=== PATIENT | female | born 1945 | race Caucasian/White ===

== ENCOUNTER → 2018-07-22 11:07 | Outpatient (CLI) | payer MEDICARE, OTHER, SELFPAY ==
[2018-07-22 12:21] LABS: Absolute Lymphocyte Count 1.15 X10^3/ul (0.83-4.51); Absolute Neutrophil Count 5.2 X10^3/uL (2.0-7.7); Basophil# 0.04 X10^3/uL; Basophil% 0.6 % (0-1); Eosinophil# 0.19 X10^3/uL; Eosinophils% 2.7 % (0-5); Hematocrit 43.7 % (37-47); Lymphocyte # 1.15 X10^3/ul (4.0); Lymphocyte % 16.4 % (19-41); Mean Corpuscular Hgb 29.5 pg (27.0-32.0); Mean Platelet Vol. 10.2 fl (6.2-12.0); Monocyte# 0.43 X10^3/uL; Monocyte% 6.1 % (0-10); Neutrophil # 5.18 X10^3/uL (2.7-7.7); Neutrophil % 73.9 % (47-70); Platelet Count 272 K/mm3 (150-450); RBC Distribution Width CV 14.1 % (11.6-14.6); RBC Distribution Width SD 46.5 fl (35.1-43.9); Red Blood Count 4.75 M/mm3 (4.2-5.4)
[2018-07-22 12:30] LABS: POSITIVE COUNT NO; POSITIVE DIFFERENTIAL NO; POSITIVE MORPHOLOGY NO
[2018-07-22 12:45] LABS: Anion Gap 8 (5-15); BUN 18 mg/dL (7-18); BUN/Creat Ratio 23.5 RATIO (10-20); Calcium,Total 8.8 mg/dL (8.5-10.1); Chloride 105 mmol/L (98-107); Cholesterol 192 mg/dL (200); Creatinine, Serum 0.77 mg/dL (0.55-1.02); EST Glomerular Filtration Rate 78 mL/min (>60); Est Glom Filt Rate - Afr Amer 95 mL/min (>60); Glucose 119 mg/dL (74-106); High Density Lipoprotein 62 mg/dL; Potassium 3.8 mmol/L (3.5-5.1); Sodium Level 140 mmol/L (136-145); Triglycerides 114 mg/dL; Very Low Density Lipoprotein 23 mg/dL (5-40)
[2018-07-22 12:57] LABS: Hemoglobin A1c 6.3 % (4.2-6.3)
== END ==
PROVIDERS: Family Provider Family Medicine; PCP Family Medicine; Referring Provider Family Medicine; Visit Provider Family Medicine
DX: L03.116 Cellulitis of left lower limb (principal); R73.02 Impaired glucose tolerance (oral); I10 Essential (primary) hypertension
CPT/HCPCS: 36415; 80048; 80061; 83036; 85025

== ENCOUNTER → 2020-02-09 14:22 | Outpatient (CLI) | payer MEDICARE, OTHER, SELFPAY ==
[2020-02-09 18:35] LABS: AST(SGOT) 17 U/L (15-37); Alanine Aminotransfer ALT/SGPT 32 U/L (13-56); Anion Gap 5 (5-15); BUN 15 mg/dL (7-18); BUN/Creat Ratio 15.5 RATIO (10-20); Calcium,Total 8.8 mg/dL (8.5-10.1); Chloride 105 mmol/L (98-107); Cholesterol 183 mg/dL (200); Creatinine, Serum 0.96 mg/dL (0.55-1.02); EST Glomerular Filtration Rate 60 mL/min (>60); Est Glom Filt Rate - Afr Amer 72 mL/min (>60); Glucose 118 mg/dL (74-106); High Density Lipoprotein 60 mg/dL; Potassium 3.8 mmol/L (3.5-5.1); Sodium Level 140 mmol/L (136-145); Triglycerides 167 mg/dL; Very Low Density Lipoprotein 33 mg/dL (5-40)
[2020-02-09 18:41] LABS: Hemoglobin A1c 6.4 % (3.8-5.6)
== END ==
PROVIDERS: PCP Family Medicine; Referring Provider Family Medicine; Visit Provider Family Medicine
DX: R73.02 Impaired glucose tolerance (oral) (principal); E78.5 Hyperlipidemia, unspecified; I10 Essential (primary) hypertension
CPT/HCPCS: 36415; 80048; 80061; 83036; 84450; 84460

== ENCOUNTER → 2020-08-29 15:25 | Outpatient (CLI) | payer MEDICARE, OTHER, SELFPAY ==
[2020-08-29 18:08] LABS: Anion Gap 6 (5-15); BUN 14 mg/dL (7-18); BUN/Creat Ratio 19.7 RATIO (10-20); Calcium,Total 9.1 mg/dL (8.5-10.1); Chloride 104 mmol/L (98-107); Cholesterol 211 mg/dL (200); Creatinine, Serum 0.71 mg/dL (0.55-1.02); EST Glomerular Filtration Rate 85 mL/min (>60); Est Glom Filt Rate - Afr Amer 103 mL/min (>60); Glucose 104 mg/dL (74-106); High Density Lipoprotein 71 mg/dL; Potassium 4.1 mmol/L (3.5-5.1); Sodium Level 140 mmol/L (136-145); Triglycerides 90 mg/dL; Very Low Density Lipoprotein 18 mg/dL (5-40)
== END ==
PROVIDERS: PCP Family Medicine; Referring Provider Family Medicine; Visit Provider Family Medicine
DX: I10 Essential (primary) hypertension (principal)
CPT/HCPCS: 36415; 80048; 80061

== ENCOUNTER 2021-05-28 10:12 | Outpatient (CLI) | payer MEDICARE, OTHER, SELFPAY ==
[2021-05-28 16:02] LABS: Microalbumin,Random Urine 5.4 mg/L (NO RANGE EST.)
[2021-05-28 16:09] LABS: Anion Gap 8 (5-15); BUN 20 mg/dL (7-18); BUN/Creat Ratio 27.7 RATIO (10-20); Calcium,Total 8.9 mg/dL (8.5-10.1); Chloride 104 mmol/L (98-107); Creatinine, Serum 0.72 mg/dL (0.55-1.02); EST Glomerular Filtration Rate 83 mL/min (>60); Est Glom Filt Rate - Afr Amer 101 mL/min (>60); Glucose 126 mg/dL (74-106); Sodium Level 141 mmol/L (136-145)
== END 2021-05-28 23:59 | disposition short-term general hospital (02) ==
LOC: MFPLAB 10:15
PROVIDERS: PCP Family Medicine; Visit Provider Family Medicine
DX: I10 Essential (primary) hypertension (principal)
CPT/HCPCS: 36415; 80048; 82043; 82570

== ENCOUNTER → 2022-02-18 | Outpatient (CLI) | payer MEDICARE, OTHER, SELFPAY ==
[2022-02-18 18:47] LABS: Anion Gap 7 (5-15); BUN 15 mg/dL (7-18); BUN/Creat Ratio 19.6 RATIO (10-20); Chloride 105 mmol/L (98-107); Cholesterol 180 mg/dL (200); Creatinine, Serum 0.77 mg/dL (0.55-1.02); EST Glomerular Filtration Rate 78 mL/min (>60); Est Glom Filt Rate - Afr Amer 94 mL/min (>60); Glucose 90 mg/dL (74-106); High Density Lipoprotein 63 mg/dL; Potassium 3.9 mmol/L (3.5-5.1); Sodium Level 142 mmol/L (136-145); Triglycerides 82 mg/dL; Very Low Density Lipoprotein 16 mg/dL (5-40)
== END | disposition home or self-care (01) ==
LOC: MFPLAB 14:16
PROVIDERS: PCP Family Medicine; Visit Provider Family Medicine
DX: I10 Essential (primary) hypertension (principal); E78.5 Hyperlipidemia, unspecified
CPT/HCPCS: 36415; 80048; 80061

== ENCOUNTER → 2023-06-13 | Outpatient (CLI) | payer MEDICARE, OTHER, SELFPAY ==
--- OUTSIDE RECORDS SUMMARY | 2023-06-13 12:11 | XMS RPT_ITS | CCD ---
Author Name Unknown Address [address] [place] [address] Organization [facility] Care Team Providers Care Chief Accountant Name Role Phone Aleisha Smiley Unavailable Claudia Tijerina Unavailable [place] Un[place] Carl Godinez Unavailable Pau Kelley Unavailable Unavailnancy bhatti Unavailable Unavailable Unavailable JIA EARL Unavailable Unavailab ALEISHA Zhou Unavailable Unavailable BERNABE TORRES Unavailable Unavailable ALEISHA SMILEY Unavailable Unavailable GONZALEZ DONNELLY Unavailable Unavailable ALEISHA SMILEY Unavailable Unavailable Aleisha Smiley Primary Care Provider [phone] Claudia Tijerina Unavailable Gonzalez Donnelly Unavailable Unavailable Carl Godinez Unavailable Pau Kelley Unavailable [phone] Aleisha Smiley MD Primary Care Provider Claudia Tijerina MD Unavailable [place] Gonzalez HEM[place]ILL Unavailable Carl Godinez MD Unavailable Pau Kelley MD Unavailable [phone] Allergies Allergy Classification Reported Allergen(s) Allergy Type Date of Onset Reaction(s) Facility (7 sources) caffeine; Translations: [CAFFEINE] Propensity to adverse reactions to drug 5 [facility] Work Phone: (7 sources) codeine; Translations: [CODEINE] Propensity to adverse reactions to drug -23-201 5 [facility] Work Phone: (7 sources) cow milk allergenic extract; Translations: [MILK] Propensity to adverse reactions to drug 08-16-201 6 GI Intolerance [facility] Work Phone: (7 sources) egg white (chicken) allergenic extract; Translations: [EGG WHITE] Propensity to adverse reactions to drug --201 5 [facility] Work Phone: (7 sources) lisinopril; Translations: [LISINOPRIL] Propensity to adverse reactions to drug --201 5 [facility] Work Phone: (7 sources) peanut allergenic extract; Translations: [PEANUT] Propensity to adverse reactions to drug 08--201 6 [facility] Work Phone: (6 sources) Penicillins; Translations: [PENICILLINS] Propensity to adverse reactions to drug -- 5 [facility] Work Phone: (7 sources) solifenacin; Translations: [SOLIFENACIN] Propensity to adverse reactions to drug --201 5 [facility] Work Phone: (7 sources) soybean preparation; Translations: [SOYBEAN] Propensity to adverse reactions to drug --201 5 [facility] Work Phone: (6 sources) Sulfonamides (Antibiotic); Translations: [SULFA (SULFONAMIDE ANTIBIOTICS)] Propensity to adverse reactions to drug -23-201 5 [facility] Work Phone: (6 sources) SHELLFISH CONTAINING PRODUCTS; Translations: [SHELLFISH CONTAINING PRODUCTS] Propensity to adverse reactions to drug -23-201 5 [facility] Work Phone: (1 source) Penicillins Propensity to adverse reactions to drug -23-201 5 [facility] (1 source) Shellfish Propensity to adverse reactions to drug -23-201 5 [facility] (1 source) Sulfonamides (Antibiotic) Propensity to adverse reactions to drug -23-201 5 [facility] Medications Current Medications Medication Drug Class(es) Dates Sig (Normalized) Sig (Original) aspirin 81 mg delayed release oral tablet (6 sources) Nonsteroidal Anti-inflammatory Drug take 1 tablet by mouth once daily aspirin 81 MG EC tablet Take 81 mg by mouth daily. 0 Active carvedilol 6.25 mg oral tablet (6 sources) alpha-Adrenergic Talon, beta-Adrenergic Talon Start: 06-13-2015 take 1 tablet by mouth twice daily carvedilol (COREG) 6.25 MG tablet Take 6.25 mg by mouth 2 (two) times a day. 3 06/13/2015 Active cholecalciferol 0.025 mg oral tablet (6 sources) Vitamin D take 1 tablet by mouth once daily cholecalciferol, vitamin D3, 1,000 unit tablet Take 1,000 Units by mouth daily. 0 Active 24 hr fesoterodine fumarate 4 mg extended release oral tablet (3 sources) Start: 07-24-2017 take 1 tablet by mouth once daily fesoterodine (TOVIAZ) 4 mg Tb24 Indications: Overactive bladder Take 1 (one) tablet (4 mg total) by mouth daily. 90 tablet 3 07/24/2017 Active hydroCHLOROthiazide 25 mg / triamterene 37.5 mg oral capsule (6 sources) Potassium-sparing Diuretic, Thiazide Diuretic Start: 10-05-2014 triamterene-hydroc hlorothiazide (DYAZIDE) 37.5-25 mg per capsule 37.5 capsules. 0 10/05/2014 Active lutein 20 mg oral capsule (6 sources) lutein 20 mg cap Take by mouth. 0 Active potassium chloride 10 meq extended release oral capsule (6 sources) Start: 10-05-2014 potassium chloride (MICRO-K) 10 MEQ CR capsule 10 mEq 3 (three) times a day. 0 10/05/2014 Active vitamin b12 0.5 mg oral tablet (6 sources) Vitamin B12 take 1 tablet by mouth once daily cyanocobalamin (vitamin B-12) 500 MCG tablet Take 500 mcg by mouth daily. 0 Active Completed/Discontinued Medications Medication Drug Class(es) Dates Sig (Normalized) Sig (Original) calcium carbonate 1250 mg / ergocalciferol 200 unt oral tablet (1 source) Provitamin D2 Compound End: 12-31-2016 take 1 tablet by mouth twice daily calcium carbonate-vitamin D2 500 mg(1,250mg) -200 unit tablet Take 1 tablet by mouth 2 (two) times a day. 12/31/2016 Discontinued fluconazole 100 mg oral tablet (4 sources) Azole Antifungal Start: 06-20-2015 End: 01-05-2018 fluconazole (DIFLUCAN) 100 MG tablet Indications: Candidal skin infection Take 2 tabs (200 mg) once. Then take 1 tab (100 mg) daily for 6 days.. 8 tablet 0 06/20/2015 01/05/2018 Discontinued Problems Active Problems Problem Classification Problem Date Documented Da te Episodic/Chronic Cancer of uterus (9 sources) Malignant neoplasm of corpus uteri, excluding isthmus; Translations: [Malignant neoplasm of corpus uteri, unspecified] Onset: 04-26-2013 10-27-2014 Chronic Genitourinary symptoms and ill-defined conditions (3 sources) Urge incontinence of urine; Translations: [Urge incontinence] Onset: 03-05-2017 Chronic Other diseases of bladder and urethra (1 source) Overactive bladder; Translations: [Overactive bladder] Chronic Unclassified (1 source) Unknown / UNK(Unknown) Onset: 01-05-2018 Past or Other Problems Problem Classification Problem Date Documented Da te Episodic/Chronic Unclassified (1 source) Follow-up Onset: 01-05-2018 Vital Signs Date Time Vital Sign Value Performing Clinician Tree almazan 01-05-2018 11:30-0400 BMI (Body Mass Index) 36.62 kg/m2 Jiashani Earl [facility] 01-05-2018 11:30-0400 BP Diastolic 72 mm[Hg] Jiashani aErl [facility] 01-05-2018 11:30-0400 BP Systolic 164 mm[Hg] Jiashani Earl [facility] 01-05-2018 11:30-0400 Pulse (Heart Rate) 78 /min Jia Earl [facility] 01-05-2018 11:30-0400 Respiratory Rate 16 /min Jiashani Earl [facility] 01-05-2018 11:30-0400 Weight 85.28 kg Jiashani Chaudharyligia [facility] 07-01-2017 13:45-0500 BMI (Body Mass Index) 36.62 kg/m2 Bernabe [facility] Work Phone: 07-01-2017 13:45-0500 BP Diastolic 84 mm[Hg] [facility] Work Phone: 07-01-2017 13:45-0500 BP Systolic 152 mm[Hg] Bernabe Torres [email or web address] Work Phone: 07-01-2017 13:45-0500 Pulse (Heart Rate) 111 /min Bernabe Torres [facility] Work Phone: 07-01-2017 13:45-0500 Weight 85.28 kg Bernabe Torres [email or web address] Work Phone: 03-05-2017 14:35-0400 BMI (Body Mass Index) 36.62 kg/m2 Gonzalez Donnelly [facility] Work Phone: 03-05-2017 14:35-0400 Body Temperature 98.4 [degF] Gonzalez Donnelly [email or web address] Work Phone: 03-05-2017 14:35-0400 BP Diastolic 74 mm[Hg] [facility] Work [facility]: 03-05-2017 14:35-0400 BP Systolic 162 mm[Hg] [facility] Work Phone: 03-05-2017 14:35-0400 Height 152.6 cm [facility] Work Phone: 03-05-2017 14:35-0400 Pulse (Heart Rate) 114 /min Gonzalez Donnelly [facility] Work Phone: 03-05-2017 14:35-0400 Respiratory Rate 18 /min Gonzalez Donnelly [facility] Work Phone: 03-05-2017 14:35-0400 Weight 85.28 kg Gonzalez Donnelly [email or web address] Work Phone: 12-31-2016 13:37-0400 BMI (Body Mass Index) 36.62 kg/m2 Jia Earl [email or web address] Work Phone: 12-31-2016 13:37-0400 BP Diastolic 77 mm[Hg] Jia Earl [email or web address] Work Phone: 12-31-2016 13:37-0400 BP Systolic 146 mm[Hg] Jia Earl [facility] Work Phone: 12-31-2016 13:37-0400 Pulse (Heart Rate) 80 /min Jia Earl [facility] Work Phone: 12-31-2016 13:37-0400 Weight 85.28 kg Jia Earl [facility] Work Phone: Encounters Encounter Date Encounter Type Care Provider Facility Start: 06-08-2020 End: 06-08-2020 Orders Only Izabel Churchill Work Phone: [facility] Start: 07-21-2018 Refill Shaan Cooley [facility] Work Phone: [facility] Plan of Treatment Date Care Activity Detail Author Start: 01-17-2022 Influenza vaccination Sequential Influenza Vaccine (#1) [facility] Start: 01-18-2020 Influenza vaccination given Sequential Influenza Vaccine (#1) [facility] Start: 01-17-2018 Influenza vaccination SEQUENTIAL INFLUENZA VACCINE (#1) [facility] Start: 01-01-2018 Ambulatory 01/01/2018 Office Visit Gynecologic Oncology Bernabe Torres MD [address] [place] [address] [phone] [facility] Start: 07-01-2017 Ambulatory 07/01/2017 Office Visit Gynecologic Oncology Bernabe Torres MD [address] [place] [address] [phone] [facility] Start: 03-10-2017 Ambulatory 03/10/2017 Office Visit [place] [address] [place] [address] [address] [place] [address] [phone] [facility] Start: 01-17-2017 Influenza vaccination SEQUENTIAL INFLUENZA VACCINE (#1) [facility] Work Phone: Start: 01-17-2017 SEQUENTIAL INFLUENZA VACCINE (#1) SEQUENTIAL INFLUENZA VACCINE (#1) [facility] Work Phone: Start: 2009 Fall risk assessment Falls Risk Assessment [facility] Start: 2009 Pneumococcal vaccination PNEUMOCOCCAL VACCINE AGE 65+ (1 of 2 - PCV13) [facility] Work Phone: Start: 2009 PNEUMOCOCCAL VACCINE AGE 65+ (1 of 2 - PCV13) PNEUMOCOCCAL VACCINE AGE 65+ (1 of 2 - PCV13) [facility] Work Phone: Start: 2004 Zoster vacc, sc ZOSTER VACCINE [facility] Work Phone: Start: 1994 Administration of herpes zoster vaccine Zoster Vaccines (1 of 2) [facility] Start: 1994 Screening for malignant neoplasm of colon [facility] Start: 1994 ZOSTER VACCINES (1 of 2) ZOSTER VACCINES (1 of 2) [facility] Start: 1984 Screening for malignant neoplasm of breast Mammogram [facility] Start: 1963 Administration of herpes zoster vaccine Zoster Vaccines (1 of 2) [facility] Start: 1962 Hepatitis C antibody, confirmatory test Hepatitis C Screening [facility] Start: 1962 Hepatitis C screening Hepatitis C Screening [facility] Start: 1956 Adolescent depression screening assessment Depression Screening (PHQ9) [facility] Start: 1956 Depression screening using PHQ-9 (Patient Health Questionnaire 9) score Depression Screening (PHQ-2/9) [facility] Start: 1950 Pneumococcal Vaccine: Age 65+ (1 - PCV) Pneumococcal Vaccine: Age 65+ (1 - PCV) [facility] Start: 1947 History and physical examination, annual for health maintenance Wellness Visit [facility] Start: 1944 COVID-19 Vaccine (#1) COVID-19 Vaccine (#1) [facility] Start: 1944 Colonoscopy COLONOSCOPY [facility] Work Phone: Start: 1944 DEXA SCAN DEXA SCAN [facility] Work Phone: Start: 1944 HEPATITIS C SCREENING HEPATITIS C SCREENING [facility] Work Phone: Start: 1944 Screening colonoscopy COLONOSCOPY [facility] Work Phone: Start: 1944 End: 1944 Screening for osteoporosis DEXA SCAN [facility] Start: 1944 TETANUS EVERY 10 YR TETANUS EVERY 10 YR [facility] Work Phone: Start: 1944 End: 1944 Tetanus vaccination [facility] Start: 1944 Fall risk assessment Falls Risk Assessment [facility] Start: 1944 Screening mammography Mammogram [facility] Bacteria aerobode culture Urine Aerobic Culture Routine Urinary incontinence, urge Ordered: 03/05/2017 [facility] Work Phone: Urinalysis Urinalysis Routi ne Urinary incontinence, urge Ordered: 03/05/2017 [facility] Work Phone: Payers Date Payer Category Payer Medicare [id number] 2009 Medicare MEDICARE MEDICAR E PART A & B [id number] 2009-Present [place] [id number] 2009 Medicare MEDICARE MEDICAR E PART A & B [id number] 2009-Present [phone] [employer] [id number] PART [place] [address] [place] [address] [id number] Private Health Insurance [id number] Private Health Insurance [employer] A ETNA SIGNATURE PPO*/TPA [id number] Effective for all dates [id number] Private Health Insurance [employer] A ETNA SIGNATURE PPO*/TPA [id number] Effective for all dates [address] [place] [address] [id number] Social History Date Type Detail Facility Start: 12-31-2016 End: 07-01-2017 Tobacco smoking status NHIS Never smoker [facility] Start: 1945 Sex Assigned At Not on file [facility] Work Phone: Start: 12-31-2016 End: 01-05-2018 Tobacco use and exposure Never used [facility] Start: 01-05-2018 Alcohol intake Current non-dr chain mender of alcohol (finding) [facility] Start: 01-05-2018 Alcohol intake [facility] Evaluation note Note Date & Type Note Facility documented in this encounter [facility] Assessments Diagnosis Cancer of corpus uteri, exce pt isthmus (HCC) - Primary Malignant neoplasm of corpus uteri, except isthmus Diagnosis Cancer of corpus uteri, exce pt isthmus (HCC) - Primary Malignant neoplasm of corpus uteri, except isthmus Diagnosis Urinary incontinence, urge - Primary Urge incontinence Diagnosis Cancer of corpus uteri, exce pt isthmus (HCC) - Primary Malignant neoplasm of corpus uteri, except isthmus Summary Purpose Family History No Family History Records Found Advance Directives No Advanced Directives Records Found Additional Source Comments INFORMATION SOURCE (unrecogn ized section and content) Reason for Visit (unrecogniz ed section and content) Care Teams (unrecognized sec tion and content) FOR RECORDS PERTAINING TO PATIENTS WHO ARE OR HAVE BEEN ENROLLED IN A CHEMICAL DEPENDENCY/SUBSTANCEABUSE PROGRAM, SOME INFORMATION MAY BE OMITTED. This clinical summary was aggregated from multiple sources. Caution should be exercised in using it in the provision of clinical care. This summary normalizes information from multiple sources, and as a consequence, information in this document may materially change the coding, format and clinical context of patient data. In addition, data may be omitted in some cases. CLINICAL DECISIONS SHOULD BE BASED ON THE PRIMARY CLINICAL RECORDS. [facility]. provides no warranty or guarantee of the accuracy or completeness of information in this document.
[2023-06-13 16:11] LABS: Hemoglobin A1c 6.4 % (3.8-5.6)
[2023-06-13 16:16] LABS: Anion Gap 9 (5-15); BUN 18 mg/dL (7-18); BUN/Creat Ratio 23.3 RATIO (10-20); Calcium,Total 9.2 mg/dL (8.5-10.1); Chloride 106 mmol/L (98-107); Cholesterol 208 mg/dL (200); Creatinine, Serum 0.77 mg/dL (0.55-1.02); EST Glomerular Filtration Rate 77 mL/min (>60); Est Glom Filt Rate - Afr Amer 93 mL/min (>60); Glucose 138 mg/dL (74-106); High Density Lipoprotein 63 mg/dL; Sodium Level 140 mmol/L (136-145); Triglycerides 102 mg/dL; Very Low Density Lipoprotein 20 mg/dL (5-40)
[2023-06-13 16:23] LABS: Microalbumin,Random Urine 20.1 mg/L (NO RANGE EST.); Microalbumin:Creatinine Ratio 19.3 mg/g CRE (<30 mg/g CRE)
== END | disposition home or self-care (01) ==
PROVIDERS: PCP Family Medicine; Referring Provider Family Medicine; Visit Provider Family Medicine
DX: I10 Essential (primary) hypertension (principal); E78.5 Hyperlipidemia, unspecified; R73.02 Impaired glucose tolerance (oral)
CPT/HCPCS: 36415; 80048; 80061; 82043; 82570; 83036

== ENCOUNTER → 2024-10-14 | Outpatient (CLI) | payer MEDICARE, OTHER, SELFPAY ==
--- NOTE | 2024-10-14 17:21 | RAD_ITS ---
EXAM: XR Chest, 2 Views CLINICAL INDICATION: COUGH TECHNIQUE: Frontal and lateral views of the chest. COMPARISON: No relevant prior studies available. FINDINGS: LUNGS AND PLEURAL SPACES: Unremarkable. No consolidation. No pneumothorax. HEART: Unremarkable. No cardiomegaly. MEDIASTINUM: Unremarkable. Normal mediastinal contour. BONES/JOINTS: Unremarkable. No acute fracture. RAD/Chest PA and Lateral IMPRESSION: No acute cardiopulmonary process. Reading Location: [facility]
== END | disposition home or self-care (01) ==
PROVIDERS: PCP Family Medicine; Referring Provider Family Medicine; Visit Provider Family Medicine
DX: R05.8 Other specified cough (principal)
CPT/HCPCS: 71046